=== PATIENT | male | born 1940 | race Caucasian/White ===

== ENCOUNTER → 2017-07-15 | Outpatient (CLI) | payer OTHER ==
[2015-12-11 10:26] VITALS: BP 113/57
--- NOTE | 2017-07-15 16:38 | MRI ---
MRI lumbar spine without contrast Indication: Chronic low back pain Comparison: None Technique: Multiplanar multi sequence MR images of the lumbar spine were obtained without contrast. Findings: Lumbar spine alignment is normal. There is no evidence for acute fracture or suspicious mar row signal. Conus terminates at L1. The cauda equina is grossly unremarkable. The visualized paravert ebral soft tissues demonstrate no significant abnormality. Multilevel degenerative changes are discus sed further below. T12-L1: There is mild broad-based posterior disc bulge and minimal bilateral facet arthropathy result ing in minimal left neural foraminal narrowing, without right foraminal or spinal canal narrowing. L1-2: There is mild broad-based posterior disc bulge and bilateral facet arthropathy resulting in min imal left neural foraminal narrowing, without significant right foraminal or spinal canal narrowing. L2-3: There is mild broad-based posterior disc bulge and bilateral facet arthropathy resulting in mil d bilateral neural foraminal narrowing, with no significant spinal canal narrowing. L3-4: There is broad-based posterior disc bulge with right paracentral component and bilateral facet arthropathy with ligamentum flavum thickening, resulting in a moderate right and mild left neural for aminal narrowing and moderate spinal canal narrowing. L4-5: There is broad-based posterior disc bulge and bilateral facet arthropathy with ligamentum flavu m thickening resulting in mild bilateral neural foraminal narrowing and mild spinal canal narrowing. L5-S1: Mild bilateral facet arthropathy, without significant canal or foraminal narrowing. Impression: Multilevel lumbar spondylosis as above, worst at L3-4. Reported By:
== END ==
LOC: RAD 13:33
PROVIDERS: ATTEND Internal Medicine
DX: M54.5 Low back pain (principal); M25.552 Pain in left hip; M47.816 Spondylosis without myelopathy or radiculopathy, lumbar region
CPT/HCPCS: 72148

== ENCOUNTER 2017-07-19 10:36 | Observation (INO) | payer OTHER ==
[2017-07-19] MEDS ORDERED: NITROSTAT SL PRN (11:16)
[2017-07-19 11:45] LABS: BASOPHILS % (AUTO) 0.5 % (0.2-1.0); EOSINOPHILS % (AUTO) 0.6 % (0.9-2.9); HEMATOCRIT 38.8 % (42.0-54.0); HEMOGLOBIN 13.1 g/dL (13.5-18.0); LYMPHOCYTES # (AUTO) 0.8 X10^3/uL (1.3-2.9); LYMPHOCYTES % (AUTO) 14.9 % (21.0-51.0); MEAN CORPUSCULAR HEMOGLOBIN 28.5 pg (27.0-34.0); MEAN CORPUSCULAR HGB CONC 33.7 g/dL (33.0-35.0); MEAN CORPUSCULAR VOLUME 84.6 fL (80.0-100.0); MEAN PLATELET VOLUME 8.9 fL (7.4-11.0); MONOCYTES # (AUTO) 0.9 x10^3/uL (0.3-0.8); MONOCYTES % (AUTO) 16.8 % (0.0-13.0); NEUTROPHILS # (AUTO) 3.7 x10^3/uL (2.2-4.8); NEUTROPHILS % (AUTO) 67.2 % (42.0-75.0); PLATELET COUNT 171 X10^3/uL (150.0-450.0); RED BLOOD COUNT 4.58 X10^6/uL (4.7-6.0); RED CELL DISTRIBUTION WIDTH 14.4 % (11.6-16.5); WHITE BLOOD COUNT 5.5 X10^3/uL (3.6-10.0)
[2017-07-19 11:47] VITALS: BMI 24.3
--- NOTE | 2017-07-19 11:51 | RAD ---
HISTORY: Chest pain onset Tuesday. Starts in midchest and radiates to the back. Study: Single-view chest, done portably Comparison: No priors Findings: Cardiac monitoring electrodes are noted on the chest. The trachea is midline. There is cardiomegaly w ith atherosclerotic calcification and uncoiling of the aortic arch. Lungs and pleural spaces are marlyn r. No acute osseous changes seen. IMPRESSION: Hypertensive configuration without acute cardiopulmonary disease. Reported By:
[2017-07-19] MEDS: ASPIRIN PO SCH (11:52)
[2017-07-19] MEDS: MORPHINE SULFATE INJ 2 MG INJ IVP PRN ×3 (11:52→20:06)
[2017-07-19 11:57] LABS: ALANINE AMINOTRANSFERASE 40 Units/L (12-78); ALBUMIN 3.2 g/dL (3.4-5.0); ALKALINE PHOSPHATASE 110 Units/L (46-116); ASPARTATE AMINO TRANSFERASE 30 Units/L (15-37); BLOOD UREA NITROGEN 10 mg/dL (7-18); CALCIUM 8.5 mg/dL (8.5-10.1); CARBON DIOXIDE 28.9 mmol/L (21-32); CHLORIDE 103 mmol/L (98-107); COR CA(FOR HYPOALB) 9.1 mg/dL (8.5-10.1); COR NA(FOR HYPERGLY) 139 mmol/L (136-145); CREATININE 0.88 mg/dL (0.70-1.30); MAGNESIUM 1.9 mg/dL (1.7-2.9); SODIUM 139 mmol/L (136-145); TOTAL PROTEIN 6.8 g/dL (6.4-8.2); eGFR BLACK RACES > 60 (>60); eGFR NON BLACK RACES > 60 (>60)
[2017-07-19 12:17] LABS: CKMB % 1.2 % (<4); CREATINE KINASE 81 Units/L (39-308); CREATINE KINASE MB < 1.0 ng/mL (0-4.0); TROPONIN I < 0.02 ng/mL (0-1.5)
[2017-07-19 15:46] LABS: CKMB % 1.4 % (<4); CREATINE KINASE 74 Units/L (39-308); CREATINE KINASE MB < 1.0 ng/mL (0-4.0); TROPONIN I 0.02 ng/mL (0-1.5)
[2017-07-19] MEDS: BRILINTA PO SCH (20:09)
[2017-07-19 20:10] LABS: CKMB % 1.5 % (<4); CREATINE KINASE 67 Units/L (39-308); CREATINE KINASE MB < 1.0 ng/mL (0-4.0); TROPONIN I 0.02 ng/mL (0-1.5)
[2017-07-19] MEDS: OSCAL+D or CALTRATE+D PO SCH (20:10)
[2017-07-19] MEDS: PEPCID TAB 20 MG PO SCH (20:11)
[2017-07-19] MEDS ORDERED: [UNRECOGNIZED DRUG - MIXTURE] PO SCH (21:00)
[2017-07-19] MEDS ORDERED: PERCOCET TAB 5/325 MG PO SCH (21:00)
[2017-07-19] MEDS ORDERED: LIPITOR TAB 40 MG PO SCH (21:00)
[2017-07-19] MEDS ORDERED: PATIENT'S HOME MEDICATION (Atorvastatin Calcium [Atorvastatin Calcium] 1 TAB) PO SCH (21:00)
[2017-07-19] MEDS ORDERED: PATIENT'S HOME MEDICATION (Oxycodone Hcl/Acetaminophen [Percocet 10-325 Mg Tablet] 1 TAB) PO SCH (21:00)
[2017-07-19 22:57] LABS: BILIRUBIN,URINE NEGATIVE (NEGATIVE); BLOOD/HEMOGLOBIN,URINE NEGATIVE (NEGATIVE); GLUCOSE, URINE NEGATIVE (NEGATIVE); KETONES,URINE NEGATIVE (NEGATIVE); LEUKOCYTE ESTERASE ,URINE NEGATIVE (NEGATIVE); NITRITES,URINE NEGATIVE (NEGATIVE); PROTEIN,URINE 1+ (NEGATIVE); UROBILINOGEN,URINE NORMAL (NORMAL)
[2017-07-19 23:31] LABS: APPEARANCE,URINE CLEAR (CLEAR); BACTERIA,URINE NEGATIVE /HPF (NEGATIVE); COLOR,URINE YELLOW (YELLOW); RBC,URINE 0-3 /HPF (NEGATIVE); SQUAMOUS EPITHELIAL CELL,UR RARE /HPF (NEGATIVE)
[2017-07-20] MEDS: MORPHINE SULFATE INJ 2 MG INJ IVP PRN (04:05)
[2017-07-20 06:22] LABS: BASOPHILS % (AUTO) 0.4 % (0.2-1.0); EOSINOPHILS % (AUTO) 0.6 % (0.9-2.9); HEMATOCRIT 36.4 % (42.0-54.0); HEMOGLOBIN 12.5 g/dL (13.5-18.0); MEAN CORPUSCULAR HEMOGLOBIN 28.7 pg (27.0-34.0); MEAN CORPUSCULAR HGB CONC 34.4 g/dL (33.0-35.0); MEAN CORPUSCULAR VOLUME 83.5 fL (80.0-100.0); MEAN PLATELET VOLUME 9.4 fL (7.4-11.0); MONOCYTES # (AUTO) 0.6 x10^3/uL (0.3-0.8); MONOCYTES % (AUTO) 13.6 % (0.0-13.0); NEUTROPHILS % (AUTO) 63.4 % (42.0-75.0); PLATELET COUNT 147 X10^3/uL (150.0-450.0); RED BLOOD COUNT 4.37 X10^6/uL (4.7-6.0); RED CELL DISTRIBUTION WIDTH 14.8 % (11.6-16.5); WHITE BLOOD COUNT 4.7 X10^3/uL (3.6-10.0)
--- NOTE | 2017-07-20 06:27 | RAD ---
HISTORY: Chest pain, shortness of breath Study: Chest AP portable Comparison: July 19, 2017 Findings: The heart is within normal limits in size. The to are normal. The lungs are free of acute infiltrat es. No pleural effusions are identified. The bony thorax is unremarkable. IMPRESSION: No significant abnormality identified Reported By:
[2017-07-20 06:39] LABS: ALANINE AMINOTRANSFERASE 43 Units/L (12-78); ALBUMIN 2.9 g/dL (3.4-5.0); ALKALINE PHOSPHATASE 100 Units/L (46-116); ASPARTATE AMINO TRANSFERASE 30 Units/L (15-37); BLOOD UREA NITROGEN 8 mg/dL (7-18); CALCIUM 8.5 mg/dL (8.5-10.1); CHLORIDE 103 mmol/L (98-107); CHOL/HDL RATIO 3.9 (0.0-5.0); CHOLESTEROL 121 mg/dL (0-200); COR CA(FOR HYPOALB) 9.4 mg/dL (8.5-10.1); CREATININE 0.83 mg/dL (0.70-1.30); HDL CHOLESTEROL 31 mg/dL (40-60); SODIUM 139 mmol/L (136-145); TOTAL PROTEIN 6.4 g/dL (6.4-8.2); TRIGLYCERIDES 74 mg/dL (0-150); eGFR BLACK RACES > 60 (>60); eGFR NON BLACK RACES > 60 (>60)
[2017-07-20] MEDS: ASPIRIN PO SCH (08:59)
[2017-07-20] MEDS: PEPCID TAB 20 MG PO SCH (08:59)
[2017-07-20] MEDS: BRILINTA PO SCH (08:59)
[2017-07-20] MEDS ORDERED: ZINC PO SCH (09:00)
[2017-07-20] MEDS ORDERED: ZINC SULFATE PO SCH (09:00)
[2017-07-20] MEDS ORDERED: COREG TAB 3.125 MG PO SCH (09:00)
[2017-07-20] MEDS: OSCAL+D or CALTRATE+D PO SCH (09:00)
--- NOTE | 2017-07-20 11:20 | DR.UPDATE ---
H&P Update History and Physical Update: WAS SEEN IN THE OFFICE ON 07/19/17. A H&P WAS COMPLETED PRIOR TO ADMISSION. PATIENT HAS BEEN SEEN AND EXAMINED WITH NO CHANGES NOTED TO H&P. Changes noted: NO Yes with the following:
[2017-07-20 13:18] VITALS: BP 89/50
== END 2017-07-20 13:30 | disposition home or self-care (01) ==
LOC: OBS 10:36 → MED/SURG 16:47
PROVIDERS: ADMIT Internal Medicine; ATTEND Internal Medicine
DX: R07.89 Other chest pain (principal); R06.02 Shortness of breath; I20.0 Unstable angina; I10 Essential (primary) hypertension; I50.1 Left ventricular failure, unspecified; I25.2 Old myocardial infarction; E78.2 Mixed hyperlipidemia; R94.31 Abnormal electrocardiogram [ECG] [EKG]; D64.89 Other specified anemias; R79.1 Abnormal coagulation profile; Z79.899 Other long term (current) drug therapy
CPT/HCPCS: 36415; 71045; 80053; 80061; 81001; 82550; 82553; 83735; 84484; 85025; 85610; 85730; 86677; 93005; 94760; A4222; G0378; J2270